=== PATIENT | female | born 1945 | race Caucasian/White ===

== ENCOUNTER 2018-08-16 09:09 | Outpatient (CLI) | payer MEDICARE, BC | END 2018-08-16 09:10 | disposition home or self-care (01) | LOC: BICMAMMO 09:09 | PROVIDERS: ATTEND Obstetrics & Gynecology | DX: Z12.31 Encounter for screening mammogram for malignant neoplasm of breast (principal); R92.1 Mammographic calcification found on diagnostic imaging of breast | CPT/HCPCS: 77063; 77067 ==

== ENCOUNTER 2019-07-27 15:21 | Emergency (ER) | payer MEDICARE, BC ==
--- NOTE | 2019-07-27 16:17 | RAD ---
Radiograph pelvis one view: DATE: 07/27/2019 HISTORY: 74-year-old female status post acute pelvic trauma from fall FINDINGS: No fracture is identified. However, if symptoms persist in the next several days, follow-up radiograp h of pelvis and hip is recommended in 5-10 days to search for occult fracture. No dislocation. Pelvic ring appears to be intact. IMPRESSION: Negative.
--- NOTE | 2019-07-27 16:18 | RAD ---
Radiograph right hip 2 views: DATE: 07/27/2019 HISTORY: 74-year-old female with acute traumatic right hip pain due to fall. FINDINGS: No fracture is identified. However, if symptoms persist in the next several days, follow-up radiograp h of pelvis and hip is recommended in 5-10 days to search for occult fracture. No dislocation. Femoral head contour is maintained. Hip joint space is maintained. No subcapital or acetabular osteop hytes. 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 IMPRESSION: 1. Normal radiographic appearance of right hip. 2. Lower lumbar spondylosis.
--- NOTE | 2019-07-27 16:20 | RAD ---
RADIOGRAPH LUMBAR SPINE 3 VIEWS: DATE: 07/27/2019 HISTORY: Lumbar spine trauma due to fall. 74-year-old female.. FINDINGS: Vertebral body heights are maintained. There is no evidence of fracture. There are degenerative disc changes and degenerative facet changes. IMPRESSION: 1) no evidence of compression fracture. 2) lumbar spondylosis.
--- NOTE | 2019-07-27 16:20 | RAD ---
XR Knee Rt 4 View STANDARD HISTORY: Left knee pain FINDINGS: No fracture or dislocation is identified. Degenerative changes are present.
[2019-07-27] MEDS ORDERED: HYDROcodone/Acetaminophen 5/325 mg Tablet ONE (16:33)
== END 2019-07-27 16:35 | disposition home or self-care (01) ==
LOC: SCSER 15:21
DX: S39.012A Strain of muscle, fascia and tendon of lower back, initial encounter (principal); S70.01XA Contusion of right hip, initial encounter; S80.01XA Contusion of right knee, initial encounter; E03.9 Hypothyroidism, unspecified; E78.5 Hyperlipidemia, unspecified; E78.00 Pure hypercholesterolemia, unspecified; I10 Essential (primary) hypertension; W01.0XXA Fall on same level from slipping, tripping and stumbling without subsequent striking against object, initial encounter
CPT/HCPCS: 72100; 72170

== ENCOUNTER 2019-08-18 08:26 | Outpatient (CLI) | payer MEDICARE, BC ==
--- NOTE | 2019-08-18 09:27 | MMO ---
Bilateral MAMMO Bilat Screen [facility]. CLINICAL HISTORY: Patient is 74 years old and is seen for screening. The patient has no family history of breast cancer. The patient has no personal history of cancer. VIEWS: The views performed were: bilateral craniocaudal with tomosynthesis and bilateral mediolateral oblique with tomosynthesis. FILMS COMPARED: The present examination has been compared to prior imaging studies performed at [facility] on 08/06/2015, 08/07/2016, 08/12/2017 and 08/16/2018. This study has been interpreted with the assistance of computer-aided detection. MAMMOGRAM FINDINGS: There are scattered fibroglandular densities. There are no suspicious masses, suspicious calcifications, or new areas of architectural distortion. IMPRESSION: THERE IS NO MAMMOGRAPHIC EVIDENCE OF MALIGNANCY. A ROUTINE FOLLOW-UP MAMMOGRAM IN 1 YEAR IS RECOMMENDED. THE RESULTS OF THIS EXAM WERE SENT TO THE PATIENT. ACR BI-RADS Category 1 - Negative MAMMOGRAPHY NOTE: 1. A negative mammogram report should not delay a biopsy if a dominant of clinically suspicious mass is present. 2. Approximately 10% to 15% of breast cancers are not detected by mammography. 3. Adenosis and dense breasts may obscure an underlying neoplasm. Reported by: Micky DIAZ Electonically Signed: [id number]
== END 2019-08-18 08:27 | disposition home or self-care (01) ==
LOC: BICMAMMO 08:26
PROVIDERS: ATTEND Obstetrics & Gynecology
DX: Z12.31 Encounter for screening mammogram for malignant neoplasm of breast (principal)
CPT/HCPCS: 77063; 77067

== ENCOUNTER 2020-08-20 07:39 | Outpatient (CLI) | payer MEDICARE, BC ==
--- NOTE | 2020-08-20 08:38 | MMO ---
Bilateral MAMMO Bilat Screen [facility]. CLINICAL HISTORY: Patient is 75 years old and is seen for screening. The patient has no family history of breast cancer. The patient has no personal history of cancer. VIEWS: The views performed were: bilateral craniocaudal with tomosynthesis and bilateral mediolateral oblique with tomosynthesis. FILMS COMPARED: The present examination has been compared to prior imaging studies performed at [facility] on 08/07/2016, 08/12/2017, 08/16/2018 and 08/18/2019. This study has been interpreted with the assistance of computer-aided detection. MAMMOGRAM FINDINGS: There are scattered fibroglandular densities. There are three new masses with circumscribed margins seen in the right breast. Two in mid upper, one lower,inner. In the left breast, there are no suspicious masses, calcifications or areas of architectural distortion. IMPRESSION: NEW MASSES IN THE RIGHT BREAST REQUIRE ADDITIONAL EVALUATION. AN ULTRASOUND EXAM IS RECOMMENDED. THE RESULTS OF THIS EXAM WERE SENT TO THE PATIENT. ACR BI-RADS Category 0 - Incomplete: Need additional imaging evaluation. [facility] will notify the patient of the need for additional imaging services. MAMMOGRAPHY NOTE: 1. A negative mammogram report should not delay a biopsy if a dominant of clinically suspicious mass is present. 2. Approximately 10% to 15% of breast cancers are not detected by mammography. 3. Adenosis and dense breasts may obscure an underlying neoplasm. Reported by: TYLER VILLASEÑOR MD Electonically Signed: [id number]
== END 2020-08-20 07:40 | disposition home or self-care (01) ==
LOC: BICMAMMO 07:39
PROVIDERS: ATTEND Obstetrics & Gynecology
DX: Z12.31 Encounter for screening mammogram for malignant neoplasm of breast (principal); N63.10 Unspecified lump in the right breast, unspecified quadrant
CPT/HCPCS: 77063; 77067

== ENCOUNTER 2020-08-24 08:55 | Outpatient (CLI) | payer MEDICARE, BC ==
--- NOTE | 2020-08-24 10:11 | ULT ---
Exam: Right breast ultrasound: HISTORY: Patient presents for ultrasound examination of multiple nodular densities within the right breast on prior screening mammogram. There are multiple anechoic and hypoechoic findings within the right breast. This includes a 0.3 x 0. 4 cm cyst at 3:00, a 0.4 x 0.4 x 0.3 cm complicated cyst or lymph node at 12:00 6 cm from the nipple, and several slightly elongated hypoechoic foci at 12:00 with some surrounding increased echog enic density. IMPRESSION: Multiple small findings in the right breast probably small cysts or lymph nodes. Slightly more elongated hypoechoic area at 12:00. BI-RADS Category 3 probably benign findings. Six-month follow-up right breast ultrasound and right b reast diagnostic mammogram is recommended for further assessment. Findings were discussed with the patient who is in agreement with short-term surveillance.
== END 2020-08-24 08:56 | disposition home or self-care (01) ==
LOC: BICULT 08:55
PROVIDERS: ATTEND Obstetrics & Gynecology
DX: N63.10 Unspecified lump in the right breast, unspecified quadrant (principal)

== ENCOUNTER 2021-02-13 08:11 | Outpatient (CLI) | payer MEDICARE, BC | END 2021-02-13 08:12 | disposition home or self-care (01) | LOC: BICMAMMO 08:11 | PROVIDERS: ATTEND Obstetrics & Gynecology | DX: R92.8 Other abnormal and inconclusive findings on diagnostic imaging of breast (principal) | CPT/HCPCS: 76642; 77065; G0279 ==

== ENCOUNTER 2021-08-21 08:13 | Outpatient (CLI) | payer MEDICARE, BC | END 2021-08-21 08:14 | disposition home or self-care (01) | LOC: BICMAMMO 08:13 | PROVIDERS: ATTEND Obstetrics & Gynecology | DX: R92.8 Other abnormal and inconclusive findings on diagnostic imaging of breast (principal) | CPT/HCPCS: 77066; G0279 ==

== ENCOUNTER 2022-04-29 19:00 | Outpatient (CLI) | payer MEDICARE, BC | END 2022-04-29 19:01 | disposition home or self-care (01) | LOC: SLEEPLAB 19:00 | PROVIDERS: ATTEND Internal Medicine | DX: G47.33 Obstructive sleep apnea (adult) (pediatric) (principal); R53.83 Other fatigue; G47.00 Insomnia, unspecified; G47.10 Hypersomnia, unspecified; I10 Essential (primary) hypertension; I49.3 Ventricular premature depolarization | CPT/HCPCS: 95811 ==

== ENCOUNTER 2022-08-25 09:28 | Outpatient (CLI) | payer MEDICARE, BC | END 2022-08-25 09:29 | disposition home or self-care (01) | LOC: BICMAMMO 09:28 | PROVIDERS: ATTEND Internal Medicine | DX: Z12.31 Encounter for screening mammogram for malignant neoplasm of breast (principal) | CPT/HCPCS: 77063; 77067 ==

== ENCOUNTER 2023-10-02 08:20 | Outpatient (CLI) | payer MEDICARE, BC ==
[2023-10-02 09:28] LABS: #Basophils 0.1 10x3/uL (0.0-0.2); #Eosinphils 0.7 10x3/uL (0.0-0.5); #Monocytes 0.7 10x3/uL (0.0-1.1); %Eosinophils 7.4 % (0.0-6.0); %Lymphocytes 17.7 % (18.0-47.0); %Monocytes 7.2 % (0.0-10.0); %Neutrophils 66.5 % (40.0-75.0); ALT (SGPT) 16 U/L (8-55); AST (SGOT) 18 U/L (5-34); Albumin 4.5 g/dL (3.4-4.8); Alkaline Phosphatase 63 U/L (40-110); Anion Gap 16 mmol/L (10-20); BUN (Urea Nitrogen) 27 mg/dL (9.8-20.1); Bilirubin, Total 0.6 mg/dL (0.2-1.2); Calc. Creatinine Clearance 0 mL/min (70-130); Calcium 9.8 mg/dL (7.8-10.44); Carbon Dioxide 23 mmol/L (23-31); Chloride 105 mmol/L (98-107); Estimated GFR 47; Globulin 2.8 g/dL (2.4-3.5); Glucose 100 mg/dL (83-110); Hematocrit 41.5 % (34.9-44.5); Hemoglobin 14.5 g/dL (12.0-15.5); Mean Corpuscular HGB CONC 34.9 g/dL (32.0-36.0); Mean Corpuscular Hemoglobin 30.7 pg (27.0-33.0); Mean Corpuscular Volume 87.7 fl (81.6-98.3); Mean Platelet Volume 10.3 fl (7.4-10.4); Platelet Count 279 10x3/uL (150-450); Potassium 4.3 mmol/L (3.5-5.1); Protein, Total 7.3 g/dL (5.8-8.1); RBC Distribution Width 12.6 % (11.5-14.5); Red Blood Cell (RBC) Count 4.73 10x6/uL (3.90-5.03); Sodium 140 mmol/L (136-145); White Blood Cell (WBC) Count 9.1 10x3/uL (3.5-10.5)
== END 2023-10-02 08:21 | disposition home or self-care (01) ==
LOC: LABBT 08:20
PROVIDERS: ATTEND Surgery
DX: Z01.818 Encounter for other preprocedural examination (principal); K43.9 Ventral hernia without obstruction or gangrene
CPT/HCPCS: 80053; 85025; 93005; 93010

== ENCOUNTER 2023-10-09 07:53 | Day surgery (SDC) | payer MEDICARE, BC ==
[2023-10-02 08:51] VITALS: BMI 24.7
[2023-10-09] MEDS ORDERED: Famotidine/PF 20 mg/2ml Vial ONE (10:27)
[2023-10-09] MEDS ORDERED: PROPOFOL 20 ML ONE (10:35)
[2023-10-09] MEDS ORDERED: fentaNYL 50 mcg/mL 1 mL Vial ONE ×6 (10:36→12:26)
[2023-10-09] MEDS ORDERED: LevoFLOXacin D5W 500 mg (100 mL) BAG ONE (10:37)
[2023-10-09] MEDS ORDERED: PHENYLEPHRINE-NS 100 MCG/ML 10 ML SYRINGE ONE (10:37)
[2023-10-09] MEDS ORDERED: Lidocaine 2% PF 5 ML VIAL ONE (10:37)
[2023-10-09] MEDS ORDERED: Dexamethasone 4 mg/ml Vial ONE (10:39)
[2023-10-09] MEDS ORDERED: Rocuronium Bromide 10 MG/ML (10ML VIAL) ONE (10:39)
[2023-10-09] MEDS ORDERED: Ketorolac Tromethamine 30 MG (1 mL) VIAL ONE (10:39)
[2023-10-09] MEDS ORDERED: Ondansetron PF 4 MG/2 ML Vial ONE (10:39)
[2023-10-09] MEDS ORDERED: SUGAMMADEX SODIUM 200 MG/2 ML VIAL ONE (10:39)
[2023-10-09] MEDS ORDERED: EPINEPHrine 1 MG/ML VIAL ONE (11:20)
[2023-10-09] MEDS ORDERED: Bupivacaine 0.25% HCL 30 ML VIAL ONE (11:20)
== END 2023-10-09 14:32 | disposition home or self-care (01) ==
LOC: SDC 07:53
PROVIDERS: ATTEND Surgery
PROC: 0WQF4ZZ Repair Abdominal Wall, Percutaneous Endoscopic Approach (ICD-10-PCS; principal; 2023-10-09)
DX: K43.6 Other and unspecified ventral hernia with obstruction, without gangrene (principal); Z79.890 Hormone replacement therapy; Z79.82 Long term (current) use of aspirin; Z79.899 Other long term (current) drug therapy; I10 Essential (primary) hypertension; E03.9 Hypothyroidism, unspecified; M19.90 Unspecified osteoarthritis, unspecified site; E11.9 Type 2 diabetes mellitus without complications; Z96.653 Presence of artificial knee joint, bilateral; Z90.710 Acquired absence of both cervix and uterus; Z90.89 Acquired absence of other organs; Z98.890 Other specified postprocedural states; F10.90 Alcohol use, unspecified, uncomplicated; Z88.0 Allergy status to penicillin
CPT/HCPCS: 49594; C1781; J0171; J3010; J1100; J1885; J1956; J2001; J2405; J2704; S0020; S0028

== ENCOUNTER 2023-10-29 08:37 | Outpatient (CLI) | payer MEDICARE, BC | END 2023-10-29 08:38 | disposition home or self-care (01) | LOC: BICMAMMO 08:37 | PROVIDERS: ATTEND Internal Medicine | DX: Z12.31 Encounter for screening mammogram for malignant neoplasm of breast (principal); Z13.820 Encounter for screening for osteoporosis; M85.851 Other specified disorders of bone density and structure, right thigh | CPT/HCPCS: 77063; 77067; 77080 ==

== ENCOUNTER 2024-11-22 08:43 | Outpatient (CLI) | payer MEDICARE, BC | END 2024-11-22 08:44 | disposition home or self-care (01) | LOC: BICMAMMO 08:43 | PROVIDERS: ATTEND Internal Medicine | DX: Z12.31 Encounter for screening mammogram for malignant neoplasm of breast (principal) | CPT/HCPCS: 77063; 77067 ==

== ENCOUNTER 2025-09-28 06:08 | Day surgery (SDC) | payer MEDICARE, BC ==
[2025-09-27 12:00] VITALS: BMI 26.6
[~2025-09-28 06:08] MED LIST: EPINEPHrine 0.3 MG in Ophthalmic Irrigation Solution 500 ML IRR SCH
[2025-09-28] MEDS ORDERED: Cyclopentolate 1% Opth Drop 2 ML BOT ONE (06:59)
[2025-09-28] MEDS ORDERED: Lidocaine 1% PF 5 ML VIAL ONE ×2 (07:08→07:51)
[2025-09-28] MEDS ORDERED: PROPOFOL 20 ML ONE (07:08)
[2025-09-28] MEDS ORDERED: Ondansetron PF 4 MG/2 ML Vial ONE (07:34)
[2025-09-28] MEDS ORDERED: Lidocaine 4% PF 5 ML AMP ONE (07:51)
[2025-09-28] MEDS ORDERED: CEFAZOLIN 1 GM VIAL ONE (07:51)
[2025-09-28] MEDS ORDERED: Maxitrol 0.1% Opth Oint 3.5 GM TUBE ONE (07:51)
[2025-09-28] MEDS ORDERED: Acetylcholine 20 MG/2 ML VIAL (OR CHARGE) ONE (07:51)
== END 2025-09-28 12:37 | disposition home or self-care (01) ==
LOC: SDC 06:08
PROVIDERS: ATTEND Ophthalmology Retina Specialist
PROC: 08T53ZZ Resection of Left Vitreous, Percutaneous Approach (ICD-10-PCS; principal; 2025-09-28)
PROC: 08PK3JZ Removal of Synthetic Substitute from Left Lens, Percutaneous Approach (ICD-10-PCS; 2025-09-28)
PROC: 08RK3JZ Replacement of Left Lens with Synthetic Substitute, Percutaneous Approach (ICD-10-PCS; 2025-09-28)
DX: T85.22XA Displacement of intraocular lens, initial encounter (principal); Z98.41 Cataract extraction status, right eye; Z98.42 Cataract extraction status, left eye; Z96.653 Presence of artificial knee joint, bilateral; Z90.710 Acquired absence of both cervix and uterus; Z98.890 Other specified postprocedural states; Z88.0 Allergy status to penicillin; Y83.1 Surgical operation with implant of artificial internal device as the cause of abnormal reaction of the patient, or of later complication, without mention of misadventure at the time of the procedure
CPT/HCPCS: 66986; 67036; J0166; J0690; J1100; J2003; J2405; J2704; J3301; J3490; V2632